=== PATIENT | female | born 1990 | race African-American/Black ===

== ENCOUNTER 2019-11-24 18:05 | Emergency (ER) | payer BC ==
[~2019-11-24] VITALS: Ht 175.3 cm; Wt 77.1 kg
[2019-11-24 19:02] LABS: Basophils # (auto) 0 10 ^3/uL (0-0.2); Hematocrit 25.1 % (36.0-46.0); Hemoglobin 7.4 g/dL (12.2-16.2); Platelet Count (auto) 363 10^3/uL (140-450)
[2019-11-24 19:05] LABS: Basophils % (auto) 1.2 % (0.0-2.0); Eosinophils # (auto) 0.2 10 ^3/uL (0-0.8); Eosinophils % (auto) 5.8 % (0.0-7.0); Lymphocytes # (auto) 1.2 10 ^3/uL (0.4-5.4); Lymphocytes % (auto) 33.3 % (10.0-50.0); Mean Corpuscular Hemoglobin 17.7 pg (28.0-32.0); Mean Corpuscular Hgb Conc. 29.4 g/dL (32.0-36.0); Mean Corpuscular Volume 60.1 fL (80.0-100.0); Monocytes # (auto) 0.5 10 ^3/uL (0-1.3); Monocytes % (auto) 12.9 % (0.0-12.0); Neutrophils # (auto) 1.7 10 ^3/uL (1.6-8.6); Neutrophils % (auto) 46.8 % (37.0-80.0); Nucleated Red Blood Cells % 0.2 %; Red Blood Cells 4.18 10^6/uL (4.0-5.20); White Blood Cell 3.6 10^3/uL (4.4-10.8)
[2019-11-24 19:05] LABS: Urine Bacteria NONE SEEN /hpf (None Seen); Urine Blood TRACE /uL (Negative); Urine Mucus FEW (None Seen); Urine Specific Gravity 1.022 (1.001-1.035); Urine WBC 1 /hpf (0 - 5)
[2019-11-24 19:06] LABS: Red Cell Distribution Width 20.1 % (11.8-14.3)
[2019-11-24 19:16] LABS: Albumin 4.2 g/dL (3.4-5.0); Calcium 8.6 mg/dL (8.5-10.1); Potassium 3.3 mmol/L (3.5-5.1)
[2019-11-24 19:19] LABS: BUN/Creatinine Ratio 8.8; Bilirubin, Total 0.9 mg/dL (0.2-1.0); Total Protein 8.1 g/dL (6.4-8.2)
[2019-11-25 01:41] VITALS: BP 130/78
== END 2019-11-25 01:51 | disposition left against medical advice (07) ==
LOC: ER 18:05
DX: D50.0 Iron deficiency anemia secondary to blood loss (chronic) (principal); N92.1 Excessive and frequent menstruation with irregular cycle; D25.9 Leiomyoma of uterus, unspecified
CPT/HCPCS: 36415; 76830; 76856; 80053; 81001; 81025; 85025; 93005